=== PATIENT | female | born 1990 | race Caucasian/White ===

== ENCOUNTER 2019-09-29 08:24 | Outpatient (CLI) | payer OTHER, MEDICAID, SELFPAY ==
[2019-09-29 08:48] LABS: Hematocrit 41.5 % (37.0-47.0); Hemoglobin 13.9 g/dL (12.0-15.0)
== END 2019-09-29 08:25 | disposition home or self-care (01) ==
PROVIDERS: Visit Provider Anesthesiology
DX: Z01.818 Encounter for other preprocedural examination (principal); N92.0 Excessive and frequent menstruation with regular cycle
CPT/HCPCS: 36415; 85014; 85018

== ENCOUNTER 2019-10-02 00:30 | Outpatient (CLI) | payer OTHER, MEDICAID, SELFPAY ==
[2019-10-02 19:41] LABS: SARS-CoV-2 RNA PCR Positive
== END 2019-10-02 00:31 | disposition home or self-care (01) ==
LOC: ANHCOVIDDT 00:31
PROVIDERS: Visit Provider Obstetrics & Gynecology
DX: U07.1 COVID-19 (principal)
CPT/HCPCS: 87635; C9803; U0003

== ENCOUNTER 2019-12-25 00:53 | Outpatient (CLI) | payer OTHER, SELFPAY ==
[2019-12-25 18:11] LABS: SARS-CoV-2 RNA PCR Negative
== END 2019-12-25 00:54 | disposition home or self-care (01) ==
LOC: ANHCOVIDDT 00:53
PROVIDERS: Visit Provider Obstetrics & Gynecology
DX: Z01.812 Encounter for preprocedural laboratory examination (principal); Z20.828 Contact with and (suspected) exposure to other viral communicable diseases
CPT/HCPCS: 87635; C9803; U0003

== ENCOUNTER 2019-12-27 02:01 | Day surgery (SDC) | payer OTHER, MEDICAID, SELFPAY ==
[2019-09-26 09:35] VITALS: BMI 24.7
[2019-12-14 15:15] VITALS: BMI 24.7
[2019-12-27] VITALS (9 sets, daily range): BP systolic 102–125; BP diastolic 60–82; PULSE 71–115; RESP 12–20; TEMP 36.3–36.7; O2SAT 98–100
--- NOTE | 2019-12-27 08:29 | PM.IMHP ---
H&P: HPI History of Present Illness Date/Time: 12/27/19 08:29 Chief complaint: Desires Sterilization, Irregular Bleeding Narrative: 29 y/o who has heavy menses despite taking a combined oral contraceptive. Menses last 8 days. She does not desire any future childbearing and would like surgical management of her problem. Review of Systems Review of Systems: All systems reviewed & are unremarkable except as noted in HPI and below PMFSH Past Medical History Medical History Anxiety Depression Surgical History Surgical History H/O LEEP History of D&C Social History Social History Smoking status: Light tobacco smoker Tobacco type: cigarettes Smoking end date: 03/22/18 Alcohol intake: current Drinks per week: 2 Substance use: never Living arrangements: with family Spiritual care concerns: No Meds Home Medications and Allergies Home Medications Medication Instructions Recorded Confirmed Type L norgest/e.estradiol-e.estrad 1 tablet PO DAILY 09/26/19 09/26/19 History [Ashlyna] escitalopram oxalate [Lexapro] 20 mg PO DAILY 12/14/19 12/14/19 History Allergies Allergy/AdvReac Type Severity Reaction Status Date / Time No Known Allergies Allergy Unverified 12/14/19 14:58 Exam Const: Orientation/consciousness: patient oriented x3 Other: Well-developed, well-nourished female in no acute distress. Neck: Thyroid: thyroid normal Lymphatic: no lymphadenopathy noted (in neck, axilla or inguinal nodes) Resp: Effort & Inspection: normal respiratory effort Auscultation: clear to auscultation bilaterally Cardio: Rate: regular rate Rhythm: regular rhythm Heart sounds: S1 normal heart sound present and S2 normal heart sound present GI: Other: ABD: Soft, nontender, nondistended. No guarding or rebound tenderness. No hepatosplenomegaly. : General: Yes no CVA tenderness Other: External genitalia: normal female hair distribution, without lesion. Urethral meatus: no lesion, non prolapsed. Bladder: no mass, nontender Vagina: well-estrogenized, without lesion or discharge. No cystocele or rectocele. Cervix: no lesion or discharge. Uterus: small, anteverted, freely mobile, nontender Adnexa: no mass or tenderness. Anus/perineum: no lesions, nontender Back/Spine/Pelvis: Back: no CVA tenderness Skin: General skin exam: normal color and no rashes or lesions noted Neuro: General: patient oriented x3 Extrem: Other: Extremities: nontender with no edema Psych: Mental Status: mental status grossly normal Affect: normal affect Assessment and Plan Assessment and plan (1) Menorrhagia: Qualifiers: Menorrhagia type: with regular cycle Qualified Code(s): N92.0 - Excessive and frequent menstruation with regular cycle Code(s): N92.0 - Excessive and frequent menstruation with regular cycle Status: Acute Assessment and Plan: A: Menorrhagia. Desired sterility. P: We have reviewed her options, including continued medical management vs. surgical management. She understands there are temporary methods of contraception available to her. She understands that there are nonsurgical options as well as surgical options. She understands that tubal ligation will render her permanently sterile. She understands that there is a failure rate associated with tubal ligation, as well as an inherent ectopic gestation risk. Furthermore, she understands risks of surgery to include risks of anesthesia, risks of pain, infection, bleeding, blood products, thromboembolic phenomena and damage to adjacent structures such as bowel, bladder, ureters, blood vessels and nerves. She understands all these risks and elects to proceed with laparoscopic bilateral tubal ligation, hysteroscopy, dilation and sharp curettage, and endometria
[2019-12-27] MEDS: LACTATED RINGERS 1,000 ML 30 ML IV CONT ×3 (11:40→15:14)
--- NOTE | 2019-12-27 11:48 | WPDHPUPDATE1 ---
History and Physical Update Update Date/Time: 12/27/19 11:48 History and Physical has been reviewed, including an updated exam of the patient. There are NO changes in the patient's condition. Risks, benefits, and alternatives have been discussed and questions answered. Patient agrees to proceed with procedure.
--- NOTE | 2019-12-27 12:10 | P.PNAN_ITS ---
Anes - Initial Pre Proc Eval Procedure: Operation Date: 12/27/19 13:00 Proposed Procedures p Hysteroscopy, Dilation And Curettage, Marli Endometrial Ablation - Guerrero Berger MD s Laparoscopic Bilateral Tubal Sterilization With Fallopian Rings - Guerrero Berger MD Date/Time: 12/27/19 12:10 Surgeon: Guerrero Berger MD Pre Op Diagnosis: Desires Sterilization, Irregular Bleeding Patient Data Age: 29 Gender: F Height: 5 ft 7 in Weight: 71.8 kg Allergies Allergy/AdvReac Type Severity Reaction Status Date / Time No Known Allergies Allergy Unverified 12/27/19 12:10 Home Medications Medication Instructions Recorded Confirmed Type L norgest/e.estradiol-e.estrad 1 tablet PO DAILY 09/26/19 09/26/19 History [Ashlyna] escitalopram oxalate [Lexapro] 20 mg PO DAILY 12/14/19 12/14/19 History Patient hx anesthesia problems: none Family hx anesthesia problems: none [facility] [place] Past Medical History Medical History Anxiety Depression Surgical History Surgical History H/O LEEP History of D&C Social History Social History Smoking status: Light tobacco smoker Tobacco type: cigarettes Smoking end date: 03/22/18 Alcohol intake: current Drinks per week: 2 Substance use: never Living arrangements: with family Spiritual care concerns: No Anes - Eval Final PreProcedure Day of Procedure 12/27/19 12:10 Patient weight: normal Heart: regular rate and rhythm Lungs: clear to auscultation Airway: Mallampati scale class 1 Neurological: alert and oriented Last oral intake: >/= 8 hours ASA classification: II Emergent: no Anesthetic plan: proceed Anesthesia type and monitoring: general ETT and standard monitoring Informed Consent: The patient's anesthetic plan and its attendant risks and benefits were discussed with the patient/family/POA. Questions were solicited and answers provided to the satisfaction of the patient/family/POA.
[2019-12-27] MEDS: KETOROLAC 30 MG/ML VIAL (*BKC) IV PUSH (13:51)
--- NOTE | 2019-12-27 13:59 | P.OP_ITS ---
Procedure Note - Detailed Date of procedure: 12/27/19 Pre-op diagnosis: Desires Sterilization, Irregular Bleeding Desired sterility Menorrhagia Post-op diagnosis: same Procedure performed: Laparoscopic bilateral tubal ligation with Falope rings Hysteroscopy Dilation and sharp curettage Endometrial ablation Description of procedure: The patient was taken to the operating room where general endotracheal anesthesia was administered. She was prepared and draped in the usual sterile fashion in dorsal lithotomy position. The bladder was drained with a red rubber catheter. A sterile speculum was placed into the vagi na. The anterior lip of the cervix was grasped with a single-tooth tenaculum. The acorn uterine manipulator was placed. The speculum was withdrawn. Gloves were changed and attention was turned the abdomen. An infraumbilical skin incision was made with a scalpel. The abdomen was tented and a 5mm bladeless trocar was advanced under direct laparoscopic visualization. Pneumoperitoneum was administered using carbon dioxide gas. A survey of the pelvis and abdomen revealed the findings noted above. A second skin incision was made in the midline above the symphysis pubis and an 8mm bladeless trocar was advanced under direct laparoscopic visualization. The fallopian tube on the right side was followed out to the fimbriated end for identification. It was then grasped in the midportion with the Falope ring applicator. The Falope ring was tented applied. A good loop of tube was noted to be distal to the ring. Hemostasis was excellent. The device was reloaded and the contralateral tube was similarly identified and ligated. An excellent application was noted here as well. A total of 2mL of 1% lidocaine was infiltrated into the serosa of the proximal tubes for postoperative anesthesia. The ports were withdrawn. The gas was allowed to escape. The skin incisions were reapproximated using interrupted subcuticular sutures of 4 0 Vicryl. Dermaflex was applied externally. Att ention was redirected to the vagina, where the acorn manipulator was withdrawn and the speculum reintroduced. The anterior lip of the cervix was grasped with single-tooth tenaculum. Ten mL of 1% lidocaine was administered in a paracervical block. The cervix was then gently dilated using Hegar dilators until an 8 mm dilator could be passed. Hysteroscopy was performed using sterile saline as a distention medium. Findings are as noted above. Sharp curettage was then performed, and endometrial curettings were collected on a Telfa pad and passed off to be sent to pathology. Finally, the the Marli device was advanced and endometrial ablation commenced without difficulty. The device was withdrawn and a second look was taken using the hysteroscope. Excellent coverage of the endometrial cavity was noted. The tenaculum was removed. Hemostasis was excellent. Sponge, lap, needle and instrument counts were correct. The patient was awakened and taken to the recovery room in stable con dition. I was present and scrubbed through the entire procedure. Implants: Falope rings bilaterally Anesthesia: GETA and local (1% lidocaine) Surgeon: Guerrero Berger MD Estimated blood loss (mL): 5 Drains: No Packing: No Pathology: yes (endometrial curettings) Complications: None Condition: stable Disposition: PACU Findings: Normal-appearing uterus, tubes, ovaries, vermiform appendix, anterior and posterior cul-de-sac, bilateral round and uterosacral ligaments. Normal- appearing endometrial cavity. Both tubal ostia were seen. The uterus sounded to a depth of 8 cm with a cervical length of 3 cm, giving a subtracted uterine cavity length of 5 cm.
[2019-12-27] MEDS: LIDOCAINE HCL 1% LOCAL INJ 20 ML VIAL 50 ML INFILTRATE (14:09)
[2019-12-27] MEDS: fentaNYL CITRATE INJ (*CRX) 100 MCG/2 ML VIAL 25 MCG IV PUSH ×10 (14:24→15:10)
[2019-12-27] MEDS: ONDANSETRON INJ 4 MG/2 ML VIAL IV PUSH (14:31)
[2019-12-27] MEDS: diphenhydrAMINE HCl INJ 50 MG/ML VIAL 25 MG IV PUSH (15:30)
== END 2019-12-27 16:25 | disposition home or self-care (01) ==
PROVIDERS: Visit Provider Obstetrics & Gynecology
PROC: 0U5B8ZZ Destruction of Endometrium, Via Natural or Artificial Opening Endoscopic (ICD-10-PCS; CPT 58563; principal; 2019-12-27 13:00)
PROC: (CPT 58671; 2019-12-27 13:00)
DX: Z30.2 Encounter for sterilization (principal); N92.0 Excessive and frequent menstruation with regular cycle; F17.210 Nicotine dependence, cigarettes, uncomplicated; F41.8 Other specified anxiety disorders
CPT/HCPCS: 58563; 58671; 88305; A4264; J0330; J1100; J1200; J1885; J2250; J2405; J2704; J3010; J7030; J7120

== ENCOUNTER 2022-07-07 11:39 | Outpatient (CLI) | payer OTHER, SELFPAY ==
[2022-07-07 12:35] LABS: Strep Group A RT-PCR DETECTED (Negative)
[2022-07-07 12:39] LABS: SARS-CoV-2 RNA PCR Negative
== END 2022-07-07 11:40 | disposition home or self-care (01) ==
LOC: ANHLAB 11:42
PROVIDERS: PCP Physician Assistant; Visit Provider Physician Assistant
DX: J02.9 Acute pharyngitis, unspecified (principal); R68.89 Other general symptoms and signs; Z20.822 Contact with and (suspected) exposure to COVID-19
CPT/HCPCS: 87070; 87147; 87651; U0003; U0005

== ENCOUNTER 2023-04-14 10:54 | Outpatient (CLI) | payer OTHER, SELFPAY ==
--- NOTE | ~2023-04-14 | XR_ITS ---
EXAMINATION: XR chest 2V 04/14/2023 11:08 INDICATION: Cough PROCEDURE: 2 view chest COMPARISON: No prior studies for comparison. FINDINGS: The lungs are clear. The cardiomediastinal silhouette is within normal limits. There are no pleural effusions. There is no pneumothorax suspected. IMPRESSION: 1: NO ACUTE CARDIOPULMONARY DISEASE. Reviewed, dictated and finalized at location B. CILPERSON
== END 2023-04-14 10:55 | disposition home or self-care (01) ==
PROVIDERS: PCP Physician Assistant; Visit Provider Physician Assistant
DX: R05.9 Cough, unspecified (principal)
CPT/HCPCS: 71046

== ENCOUNTER 2023-12-16 23:23 | Emergency (ER) | payer OTHER, SELFPAY ==
--- NOTE | ~2023-12-16 | XR_ITS ---
EXAM: XR hand RT min 3V DATE: 12/16/2023 23:45 HISTORY: right hand injury, swelling and pain . COMPARISON: None available. FINDINGS: Normal mineralization. Oblique fracture of the proximal fourth metacarpal (best seen in th e lateral view). Mildly comminuted fracture of the distal fifth metacarpal with 60 degrees anterior a ngulation. No lytic or blastic lesion. Joint spaces are maintained. No erosion or periosteal change. Soft tissue deformity over the fifth metacarpal. IMPRESSION: Oblique minimally displaced fracture of the proximal aspect of the right fourth metacarpal. Boxer's type fracture of the distal fifth metacarpal with significant anterior angulation. Reviewed, dictated and finalized at location K.
[2023-12-16 23:26] VITALS: BP 135/54; PULSE 88; RESP 18; TEMP 37; O2SAT 100
--- NOTE | 2023-12-16 23:53 | ED.UPPEXIN ---
HPI - Extremity Injury (Upper) General Chief Complaint: Extremity Injury, Upper Stated Complaint: fall down 1 step causing pain to R hand Time Seen by Provider: 12/16/23 23:38 Source: patient Mode of arrival: ambulatory Limitations: no limitations History of Present Illness HPI narrative: This is a 33-year-old female who presents to the ED with chief complaint of a fall and right hand injury occurring just prior to arrival. Patient states that she was going downstairs to let her dogs outside when she accidentally fell down the last step. Reports that she caught herself with a flexed right hand. Endorses pain and swelling in this area but no further sites of pain or injury. Denies head injury or LOC. denies numbness or weakness. Related Data Allergies Allergy/AdvReac Type Severity Reaction Status Date / Time No Known Allergies Allergy Unverified 12/16/23 23:23 Review of Systems Review of Systems: All systems as dictated in HPI PMFSH Past Medical History Medical History Anxiety Depression Surgical History Surgical History H/O LEEP History of D&C Hx of prior ablation treatment Tubal ligation status Family History Family History Mother Asthma Diabetes mellitus Cerebrovascular accident Father Cerebrovascular accident Heart disease Sibling Depression Grandparent Breast cancer Social History Social History Smoking status: Former smoker Tobacco type: cigarettes Second hand tobacco smoke exposure: No Smoking end date: 03/22/18 Alcohol intake: current Drinks per week: 2 Substance use: never Lack of Transportation: No Lack of Food: Never True Current Housing: I Have Housing Concerned About Future Housing: No Difficulty Paying Gas/Electric Bills: No Difficulty Paying for Meds: No Currently Unemployed: No Education: Associate Degree Difficulty w/ Childcare or Family Care: No Living arrangements: with family Spiritual care concerns: No Exam Narrative: GENERAL: Well-appearing, well-nourished, and in no acute distress. HEAD: Normocephalic, atraumatic. EYES: PERRLA and EOMI. ENT: Nares clear, no rhinorrhea or epistaxis. Mucous membranes moist. Oropharynx without tonsillar hypertrophy exudate or other lesions. NECK: Supple. No adenopathy or masses. CHEST: No respiratory distress. Clear to auscultation. No wheezes rales or rhonchi HEART: Regular rate and rhythm. No murmur heard. Normal peripheral pulses. ABDOMEN: Soft, nontender, nondistended, normal active bowel sounds. MSK: RUE: Significant bruising and swelling to the right 4th and 5th metacarpal area. No tenting of the skin. Neurovascular intact distally. Mild tenderness present. LUE: Benign SKIN: Warm, dry, no rash. NEURO: Alert and oriented x4. No focal deficits. PSYCH: Normal mood and affect. Course Vital Signs Vital signs: Vital Signs Temperature 98.6 F 12/16/23 23:26 Pulse Rate 88 12/16/23 23:26 Respiratory Rate 18 12/16/23 23:26 Blood Pressure 135/54 L 12/16/23 23:26 Pulse Oximetry 100 12/16/23 23:26 Oxygen Delivery Room Air 12/16/23 23:26 Temperature 98.6 F 12/16/23 23:26 Pulse Rate 88 12/16/23 23:26 Respiratory Rate 18 12/16/23 23:26 Blood Pressure 135/54 L 12/16/23 23:26 Pulse Oximetry 100 12/16/23 23:26 Oxygen Delivery Room Air 12/16/23 23:26 MDM - Extremity Injury (Upper) MDM Narrative Medical decision making narrative: This is a 33 yo F presents to the ED for chief complaint of right hand injury after falling down stairs. Vitals are normal. Exam shows bruising, swelling to the right hand. Right hand x-ray: IMPRESSION: Oblique minimally displaced fracture of the proximal aspect of the right fourth
== END 2023-12-17 00:24 | disposition home or self-care (01) ==
PROVIDERS: Emergency Provider Physician Assistant; PCP Physician Assistant
DX: S62.304A Unspecified fracture of fourth metacarpal bone, right hand, initial encounter for closed fracture (principal); S62.306A Unspecified fracture of fifth metacarpal bone, right hand, initial encounter for closed fracture; W19.XXXA Unspecified fall, initial encounter; F41.8 Other specified anxiety disorders; Z87.891 Personal history of nicotine dependence
CPT/HCPCS: 29125; 73130; 99284

== ENCOUNTER 2023-12-30 09:34 | Day surgery (SDC) | payer OTHER, SELFPAY ==
[2023-12-23 10:35] VITALS: BMI 26.2
--- NOTE | ~2023-12-30 | XR_ITS ---
INTRAOPERATIVE FLUOROSCOPY: CLINICAL HISTORY: 33 years old Female; RIGHT 5TH METACARPAL FX CR PIN FIXATION PROCEDURE COMMENTS: Limited intraoperative fluoroscopy of the right hand was performed. DOSE AREA PRODUCT: 2.5 Gy-cm2 FLUOROSCOPY TIME: 39 seconds FINDINGS/IMPRESSION: Please refer to operative note for further details. Reviewed, dictated and finalized at location A.
--- NOTE | 2023-12-30 07:09 | WPDHPUPDATE1 ---
History and Physical Update Update Date/Time: 12/30/23 07:09 Patient seen and examined in pre-operative holding area. No interval change in medical history or symptoms. Patient recalls previous discussion of benefits and alternatives to procedure. Continues to desire to proceed with closed possible open reduction and pinning right fiffth metacarpal fracture. Reviewed procedure, post-op expectations and risks including but not limited to bleeding, infection, injury to tendon/nerve/vessel, decreased hand function, stiffness, RSD, no change or worsening of symptoms, malunion, nonunion. I discussed the possible use of assistants and their participation in the case. Patient stated understanding and signed the consent form wishing to proceed.
--- NOTE | 2023-12-30 07:09 | W.PM.PROC2 ---
Procedure Note - Detailed Date of Procedure 12/30/23 Pre-op Diagnosis Right 5th metacarpal fracture Post-op Diagnosis Same Procedure Performed crpp right 5th mc fx Surgeon Fantasma Bob MD [employer] Representative amanda us pa-c Anesthesia MAC Description of Procedure INFORMED CONSENT: The patient was seen and examined and marked in the pre-op area.? The patient signed the consent form. PROCEDURE IN DETAIL:The patient taken back to OR on the stretcher in supine position. Time out performed with anesthesia, surgeon and staff agreeing on patient's name site and surgery to be performed SCDs were placed on the lower extremities and inflated. A tourniquet was placed on {right} upper extremity and antibiotics given IV After anesthesia administered sedation I injected {5}cc 1%lido with epi and 0.5% marcaine plain at the operative site The?{right upper extremity}?was prepped and draped in sterile fashion the??{right upper extremity} was? exsanguinated with Esmarch bandage and tourniquet inflated to 250mmHg Mini c-arm was draped and brought into the field. I proceeded with closed reduction manuevers after assessing the fracture under fluoro using Jhass maneuver and verifiying reduction on multiple views of fluoro I proceeded with placing 2 crossing 0.045 k-wires in retrograde fashion across the fracture. K-wire placement was verified on multiple views of fluoro noting maintnenace of adequate reduction and pin placement. There was no impingement on the extensor tendons, knuckle heigh was restored and there was no scissoring of the digits with normal appearing cascade and tenodesis. The pins were trimmed and dressed with betadine soaked alcohol swabs. A dressing of 4x4, joseph, and an ulnar gutter splint was applied for patient safety, security, and comfort and secured with an tali bandage after the tourniquet was let down noting the hand was warm and well perfused. The patient was then awaken from anesthesia and transferred to the recovery room in stable condition.? Complications - none EBL- 0cc Disposition - home in stable conditions Amanda Us PA-C was essential for positioning, reduction, fluoro, and dressing placement [facility] Billing Surgery - Charge Forward: Surgery Billing ([id number] for amanda)
--- NOTE | 2023-12-30 10:13 | P.PNAN_ITS ---
Anes - Initial Pre Proc Eval Procedure: Operation Date: 12/30/23 11:15 Proposed Procedures p Right Fifth Metacarpal Fracture Closed Reduction, Possible Open Reduction and Pin Fixation(Right) - Fantasma Bob MD Date/Time: 12/30/23 10:13 Surgeon: Fantasma Bob MD Pre Op Diagnosis: Right 5th metacarpal fracture Patient Data Age: 33 Gender: F Height: 1.7 m Weight: 76 kg Allergies Allergy/AdvReac Type Severity Reaction Status Date / Time No Known Allergies Allergy Verified 12/30/23 10:15 Home Medications Medication Instructions Recorded Confirmed Type albuterol sulfate 90 mcg/actuation 2 puff inhalation Q4-6H PRN 04/14/23 12/30/23 Rx aerosol inhaler shortness of breath or wheezing #8.5 grams Patient hx anesthesia problems: none Family hx anesthesia problems: none Results Review: All pre-operative results and documents have been reviewed as part of the pre- operative evaluation. [facility] Past Medical History Medical History Acute pharyngitis Anxiety Asthma Depression Overweight (BMI 25.0-29.9) Surgical History Surgical History H/O LEEP History of D&C Hx of prior ablation treatment Tubal ligation status Family History Family History Mother Asthma Diabetes mellitus Cerebrovascular accident Father Cerebrovascular accident Heart disease Sibling Depression Grandparent Breast cancer Social History Social History Smoking status: Never smoker Tobacco type: cigarettes Second hand tobacco smoke exposure: No Smoking end date: 03/22/18 Alcohol intake: never Drinks per week: 2 Substance use: never Substance use type: does not use Lack of Transportation: No Lack of Food: Never True Current Housing: I Have Housing Concerned About Future Housing: No Difficulty Paying Gas/Electric Bills: No Difficulty Paying for Meds: No Currently Unemployed: No Education: Associate Degree Difficulty w/ Childcare or Family Care: No Living arrangements: with family Spiritual care concerns: No Anes - Eval Final PreProcedure Day of Procedure 12/30/23 10:13 Patient weight: overweight Heart: regular rate and rhythm Lungs: clear to auscultation Airway: Mallampati scale class II Neurological: alert and oriented Last oral intake: >/= 8 hours ASA classification: II Emergent: no Anesthetic plan: proceed Anesthesia type and monitoring: general GIVS and standard monitoring Results Review: All pre-operative results and documents have been reviewed as part of the pre- operative evaluation. Informed Consent: The patient's anesthetic plan and its attendant risks and benefits were discussed with the patient/family/POA. Questions were solicited and answers provided to the satisfaction of the patient/family/POA.
[2023-12-30 10:28] VITALS: BP 113/83; PULSE 88; RESP 18; TEMP 36.8; O2SAT 99; BMI 26.3
[2023-12-30] MEDS: LACTATED RINGERS 1,000 ML 30 ML IV CONT (10:46)
[2023-12-30] MEDS: ceFAZolin SODIUM 2 GM/20 ML SW SYRINGE IV PUSH (11:11)
[2023-12-30] MEDS: BUPivacaine HCL 0.5% 10 ML AMP 2.5 ML INFILTRATE (11:17)
[2023-12-30] MEDS: LIDO 1%/EPINEPHRINE 1:100,000 10 ML VIAL 2.5 ML INFILTRATE (11:17)
[2023-12-30 11:47] VITALS: BP 117/57; PULSE 104; RESP 18; O2SAT 97
--- NOTE | 2023-12-30 12:07 | WPDANESPN ---
Anes - Prog Note Post-Op Date/Time: 12/30/23 12:07 Cardiovascular status: normal Respiratory status: normal Airway patency: baseline Mental status: baseline Post-Op hydration status: normal Vital Signs: Last Vital Signs Temp 36.8 C 12/30/23 10:28 Pulse 104 H 12/30/23 11:47 Resp 18 12/30/23 11:47 BP 117/57 L 12/30/23 11:47 Pulse Ox 97 12/30/23 11:47 O2 Del Method Room Air 12/30/23 11:47 Pain Score (VAS): 2 Post-procedural complaints: none Patient Feedback: Patient satisfied with anesthetic care. Other Findings: Patient vital signs back to baseline. Patient denies nausea and vomiting. Patient's pain under control. Patient OK for discharge.
[2023-12-30] MEDS: oxyCODONE HCL (*CRX) 5 MG TAB IR PO (12:09)
[2023-12-30 12:10] VITALS: BP 107/81; PULSE 84; RESP 18; O2SAT 99
[2023-12-30] MEDS: fentaNYL CITRATE INJ (*CRX) 100 MCG/2 ML VIAL 25 MCG IV PUSH ×2 (12:19→12:22)
[2023-12-30 12:30] VITALS: BP 111/80; PULSE 70; RESP 20; O2SAT 96
[2023-12-30 12:45] VITALS: BP 115/74; PULSE 66; RESP 20; O2SAT 100
== END 2023-12-30 12:52 | disposition home or self-care (01) ==
LOC: ASC 09:59
PROVIDERS: PCP Physician Assistant; Visit Provider Plastic Surgery
PROC: (CPT 26608; principal; 2023-12-30 11:15)
DX: S62.396A Other fracture of fifth metacarpal bone, right hand, initial encounter for closed fracture (principal)
CPT/HCPCS: 26608; 99199

== ENCOUNTER 2024-01-17 12:11 | Outpatient (CLI) | payer OTHER, SELFPAY ==
--- NOTE | ~2024-01-17 | XR_ITS ---
EXAMINATION: XR hand RT 2V DATE: 01/17/2024 12:25 INDICATION: Displaced fracture of neck of fifth metacarpal of right hand. TECHNIQUE: 2 views of right hand were obtained. COMPARISON: Right hand radiographs 12/16/2023 FINDINGS: There is a comminuted fracture of neck of fifth metacarpal. The main distal fracture fragme nt demonstrates 6 degrees palmar angulation. Fixation is seen with 2 wires. Splint material obscures fine bone detail. Joint spaces are normal. IMPRESSION: 1. Comminuted fracture of neck of fifth metacarpal with wire fixation. Reviewed, dictated and finalized at location B.
== END 2024-01-17 12:12 | disposition home or self-care (01) ==
LOC: ANHIMG 12:17
PROVIDERS: PCP Physician Assistant; Visit Provider Physician Assistant Surgical
DX: S62.336D Displaced fracture of neck of fifth metacarpal bone, right hand, subsequent encounter for fracture with routine healing (principal); X58.XXXD Exposure to other specified factors, subsequent encounter
CPT/HCPCS: 73120

== ENCOUNTER 2024-02-01 09:37 | Outpatient (CLI) | payer OTHER, SELFPAY ==
--- NOTE | ~2024-02-01 | XR_ITS ---
XR hand RT min 3V Ordering provider: Suri Denis PA-C History: . PIN REMOVAL 5TH METACARPAL . Comparison: January 17, 2024 FINDINGS: BONES: Boxers fracture is seen in the distal metaphysis of the fifth metacarpal bone. Status post rem oval of the cast and K wires. JOINT SPACES: Normal. SOFT TISSUES: Normal. IMPRESSION: Boxer's fracture with no change in alignment compared to previous study. Reviewed, dictated and finalized at location A. TO [employer]OR [employer]
== END 2024-02-01 09:38 | disposition home or self-care (01) ==
PROVIDERS: PCP Physician Assistant; Visit Provider Physician Assistant Surgical
DX: S62.396A Other fracture of fifth metacarpal bone, right hand, initial encounter for closed fracture (principal); X58.XXXA Exposure to other specified factors, initial encounter
CPT/HCPCS: 73130